=== PATIENT | male | born 1995 | race African-American/Black ===

== ENCOUNTER 2018-04-26 11:50 | Emergency (ER) | payer SELFPAY ==
[~2018-04-26] VITALS: Ht 175.3 cm; Wt 97.5 kg
[2018-04-26 12:35] VITALS: BP 146/63
--- NOTE | 2018-04-26 13:54 | RAD ---
Chest, 2 views, 04/26/2018: HISTORY: Left-sided chest pain The heart size and pulmonary vascularity are normal. The lungs are clear. There is no evidence of pleural fluid. IMPRESSION: No acute cardiopulmonary abnormality is detected. Electronically signed by: Yogi Salazar MD (04/26/2018 1:51 PM) [facility]
--- NOTE | 2018-04-26 14:22 | PHYS DOC ---
Past Medical History Past Medical History: No Pertinent History Past Surgical History: No Surgical History Alcohol Use: None Drug Use: None Adult General Chief Complaint Chief Complaint: COUGH HPI HPI Patient is a 23 year old male who presents with flexion [place] 1900 he began having sharp pains with breathing and with moving his right arm and his chest. Patient is afebrile. Patient denies any recent illness or cough. Denies any shortness of breath. Patient states he does smoke marijuana and does smoke some cigarettes. Patient states that he's had no abdominal pain, nausea, fever. Patient has no medical history, takes no medications, has no surgical history. He is allergic to amoxicillin. Alert and oriented. Vital signs are 146/63, 78 heart rate, 16 respirations, 96% on room air, 98.5. Review of Systems Review of Systems Constitutional: Denies fever or chills [] Eyes: Denies change in visual acuity, redness, or eye pain [] HENT: Denies nasal congestion or sore throat [] Respiratory: Denies cough or shortness of breath [] Cardiovascular: right chest sharp pain with inspiration and moving right arm GI: Denies abdominal pain, nausea, vomiting, bloody stools or diarrhea [] : Denies dysuria or hematuria [] Musculoskeletal: Denies back pain or joint pain [] Integument: Denies rash or skin lesions [] Neurologic: Denies headache, focal weakness or sensory changes [] Endocrine: Denies polyuria or polydipsia [] All other systems were reviewed and found to be within normal limits, except as documented in this note. Allergies Allergies Allergies Coded Allergies Type Severity Reaction Last Updated Verified amoxicillin Allergy Intermediate 04/26/18 Yes Physical Exam Physical Exam Constitutional: Well developed, well nourished, no acute distress, non-toxic appearance. [] HENT: Normocephalic, atraumatic, bilateral external ears normal, oropharynx moist, no oral exudates, nose normal. [] Eyes: PERRLA, EOMI, conjunctiva normal, no discharge. [] Neck: Normal range of motion, no tenderness, supple, no stridor. [] Cardiovascular:Heart rate regular rhythm, no murmur [] Lungs & Thorax: Bilateral breath sounds clear to auscultation [] Abdomen: Bowel sounds normal, soft, no tenderness, no masses, no pulsatile masses. [] Skin: Warm, dry, no erythema, no rash. [] Back: No tenderness, no CVA tenderness. [] Extremities: Reproducible right chest wall pain with palpation and moving patients right arm.. No tenderness, no cyanosis, no clubbing, ROM intact, no edema. [] Neurologic: Alert and oriented X 3, normal motor function, normal sensory function, no focal deficits noted. [] Psychologic: Affect normal, judgement normal, mood normal. [] Current Patient Data Vital Signs Vital Signs Date Time Temp Pulse Resp B/P (MAP) Pulse Ox O2 Delivery O2 Flow Rate FiO2 04/26/18 12:35 98.5 78 16 146/63 (90 96 Room Air 98.5 EKG EKG [] Radiology/Procedures Radiology/Procedures [] Impressions: [facility] [address] [place] [address] IMAGING REPORT Signed PATIENT: SARAN EMERY ACCOUNT: [id number] : 1995 LOCATION: ER AGE: 23 SEX: M EXAM STATUS: REG ER ORD. PHYSICIAN: EMANUEL THOMAS APRN REASON: CHEST PAIN WITH BREATHING/ COUGH ED D PROCEDURE: CHEST PA & LATERAL Chest, 2 views, 04/26/2018: HISTORY: Left-sided chest pain The heart size and pulmonary vascularity are normal. The lungs are clear. There is no evidence of pleural fluid. IMPRESSION: No acute cardiopulmonary abnormality is detected. Electronically signed by: Yogi Good MD (04/26/2018 1:51 PM) [facility] DICTATED and SIGNED BY: YOGI GOOD MD DATE: 04/26/18 0440 Course & Med Decision Making Course & Med Decision Making Patient is a 23 year old male who presents with flexion [place] 1900 he began having sharp pains with breathing and with moving his right arm and his chest. Patient is afebrile. Patient denies any recent illness or cough. Denies any shortness of breath. Patient states he does smoke marijuana and does smoke some cigarettes. Patient states that he's had no abdominal pain, nausea, fever. Patient has no medical history, takes no medications, has no surgical history. He is allergic to amoxicillin. Alert and oriented. Vital signs are 146/63, 78 heart rate, 16 respirations, 96% on room air, 98.5. PERC is negative therefore he will not eat to be ruled out for a PE. Skin is pink warm and dry. Lungs are clear in all lobes to auscultation. Heart rate is regular without murmur. The pain in his chest cavity retreated with palpation, taking deep breath, moving his right arm. Chest x-ray shows no acute findings. Patient's told that he has some chest wall pain and to use ibuprofen for pain relief. Patient is told that if he becomes short of air, having nausea, vomiting, increased chest pain that is not reproducible with movement, diaphoretic that he needs to return to the ED immediately. Patient Should follow up with his primary care if needed. Dragon Disclaimer Dragon Disclaimer This electronic medical record was generated, in whole or in part, using a voice recognition dictation system. Departure Departure Impression: Primary Impression: Chest wall pain Disposition: 01 HOME, SELF-CARE Condition: STABLE Referrals: NO PCP (PCP) Patient Instructions: Chest Wall Pain Additional Instructions: USE IBUPROFEN FOR PAIN. FOLLOW UP WITH YOUR PRIMARY CARE DOCTOR. EMANUEL THOMAS DENTAL EQUIPMENT TECHNICIAN Apr 26, 2018 14:21
== END 2018-04-26 14:38 | disposition home or self-care (01) ==
LOC: ER 11:50
DX: R07.89 Other chest pain (principal); F17.210 Nicotine dependence, cigarettes, uncomplicated; F12.90 Cannabis use, unspecified, uncomplicated; Z88.1 Allergy status to other antibiotic agents
CPT/HCPCS: 71046; 99284